=== PATIENT | female | born 1955 | race Caucasian/White ===

== ENCOUNTER → 2016-11-20 | Outpatient (CLI) | payer OTHER ==
[~2016-11-20] MED LIST: CETI10TA10 PO; HERBAL SUPPLEMENT PO; MULT-506 PO; OMEG10007 PO; VNTHFA/IN INH
[2016-11-20 17:17] LABS: HEMATOCRIT 42.7 % (37-47); MEAN CORPUSCULAR HEMOGLOBIN 29.9 pg (25-34); MEAN CORPUSCULAR HGB CONC 32.8 g/dl (32-36); MEAN PLATELET VOLUME 9.9 fL (7.4-10.4); PLATELET COUNT 210 K/uL (130-400); RED BLOOD COUNT 4.69 M/uL (4.2-5.4); WHITE BLOOD COUNT 4.82 K/uL (4.8-10.8)
[2016-11-20 17:29] LABS: PROTHROMBIN TIME (PATIENT) 11.2 SECONDS (9.0-12.0)
[2016-11-20 17:34] LABS: POTASSIUM 3.6 mmol/L (3.5-5.1)
== END | disposition home or self-care (01) ==
LOC: C.LAB 16:44
PROVIDERS: ATTEND Plastic Surgery
DX: Z01.818 Encounter for other preprocedural examination (principal)

== ENCOUNTER → 2016-11-28 | Day surgery (SDC) | payer SELFPAY ==
[2016-11-22 11:39] VITALS: Ht 166.4 cm; Wt 73.2 kg
[~2016-11-28] VITALS: Ht 166.4 cm; Wt 73.2 kg
[~2016-11-28] MED LIST changes: +ACETAMINOPHEN 1000 MG/100 ML IV IV ONE; +ACETAMINOPHEN 325 MG TAB PO PRN; +BACITRACIN OINT 15 GM TUBE ONE; +BUPIVACAINE 0.25% 2.5MG/ML PF 10 ML VIAL INFIL ONE; +CEFAZOLIN 1000MG/55 ML D5W IV SCH; +CEFAZOLIN SOD 1 GM VIAL ONE; +DEXAMETHASONE SOD INJ 4 MG/ML VIAL ONE; +DiphenhydrAMINE HCL 50 MG/ML VIAL IV PRN; +DiphenhydrAMINE HCL 50 MG/ML VIAL ONE; +FENTANYL CITRATE INJ 50 MCG/1 ML 2 ML VIAL ONE; +KETAMINE HCL INJ 50 MG/ML 10 ML VIAL ONE; +LACTATED RINGER'S 1000ML 1,000 ML IV PRN; +LACTATED RINGER'S 1000ML 1,000 ML IV SCH; +LIDOCAINE HCL 2% 2 ML VIAL (20MG/ML) ONE; +LIDOCAINE/EPINEPHRINE 1% INJ 50 ML VIAL ONE; +METOCLOPRAMIDE HCL INJ 5 MG/ML 2 ML VIAL IV PRN; +METOCLOPRAMIDE HCL INJ 5 MG/ML 2 ML VIAL ONE; +MIDAZOLAM HCL 1 MG/ML 2ML VIAL ONE; +ONDANSETRON INJ 2 MG/ML 2 ML VIAL IV PRN; +ONDANSETRON INJ 2 MG/ML 2 ML VIAL ONE; +OXYCODONE/ACETAMINOPHEN 5-325 TAB PO PRN; +PROPOFOL IV EMULSION 10 MG/ML 20 ML VIAL IV ONE; +ROPIVACAINE 0.5% 5 MG/ML 30 ML VIAL ONE; +SCOPOLAMINE 1.5 MG TDSY TD ONE; +SODIUM CHLORIDE 0.9% 1000ML 1,000 ML IV SCH; +SODIUM CHLORIDE 0.9% INJ 10 ML VIAL ONE
--- NOTE | 2016-11-28 07:07 | History & Physical Bridge - [place] ---
H&P Re-Evaluation Bridge Note: I have examined the patient, reviewed the History & Physical and in the interval since the performance of the History & Physical I have noted the following changes of clinical significance: No changes noted
--- NOTE | 2016-11-28 10:10 | [facility] Post Operative Brief Note ---
Immediate Operative Summary Operative Date November 28, 2016. Pre-Operative Diagnosis Retained breast implant; Bilateral breast implant rupture (MRI), desire for implant removal Post-Operative Diagnosis Retained Breast implant; Desire for implant removal Procedure(s) Performed Bilateral Breast Implant Removal With Capsulectomy Surgeon Dr Espinosa Resource Manager Forester Surgeon(s) Teetee Ford PA-C Estimated Blood Loss 50 ML Findings bilateral 650 cc textured subglandular silicone implants, both implants intact. Capsules pliable, no seromas Specimens A. Left Breast implant B. Right breast implant C. Left breast capsule and scar tissue-- test for ALCL D. right breast capsule and scar tissue--test for ALCL Drains GEORGE x2 Anesthesia general Complication(s) None Disposition Recovery Room / PACU
--- NOTE | 2016-11-28 10:18 | Discharge Instructions ---
Discharge Instructions Date of Service November 28, 2016. Admission Reason for Admission: Bilateral Breast Implants Discharge Discharge Diagnosis / Problem: bilateral breast implants Discharge Goals Goal(s): Decrease discomfort Activity Recommendations Activity Limitations: per Instructions/Follow-up section ACTIVITY RECOMMENDATIONS: __Normal activities _x_No bending, lifting or straining __No driving _x_Driving allowed when you are off pain medications _x_Walking permitted __You should have help at home for ___ days DRESSINGS: __No dressings required _x_Keep dressings dry/in place until first office visit. Continue to wear compression bra. If it feels too loose, please purchase a smaller/tighter bra __Remove dressings ___ and leave dressings off __Apply ice ___ days __Remove dressings and reapply garment __Apply antibiotic ointment (Bacitracin, Neosporin, etc) to wounds 3-4 times/ day for 10 days BATHING: _x_Keep dressings dry _x_Sponge bathing permitted __Showering permitted _x_No swimming, hot tubs or soaking in a tub MEDICATIONS: Resume previous medications unless instructed otherwise by your surgeon. _x_Do not use aspirin, Motrin, Advil or Ibuprofen as these may promote bleeding. Please use Tylenol. _x_Prescription(s) provided: pain medication was provided at your last office visit OTHER INSTRUCTIONS: _x_Record drain output 2-3 times per day SPECIAL CARE INSTRUCTIONS: * It is normal to have a mild fever after surgery. If your temperature is higher than 101.5 degrees F, please call the office at [phone]. * Constipation is a typical side effect of pain medication. An over-the- counter stool softener will help relieve this. * Leaking around surgical drains may occur and should not cause concern. Sometimes these drains become clogged. If this happens, remove the bulb and milk the clot out of the tube, then replace the bulb. * Drainage from wounds after liposuction is normal and should be expected. Garments will become soiled. You should protect furniture and bedding. This drainage should mostly subside within 2-3 days. Leave garments in place unless instructed to remove them. * If you have unusual drainage from a wound or are concerned you have an infection or have any questions or concerns, please call the office at [phone]. FOLLOW UP VISIT: If not already scheduled, please call the office, , when you return home after surgery to schedule an appointment to be seen in __2_ days. . Current Hospital Diet Patient's current hospital diet: Discharge Diet Recommended Diet: Regular Diet Procedures Procedures Performed: Bilateral Breast Implant Removal With Capsulectomy Pending Studies Studies pending at discharge: yes List of pending studies: pathology Medical Emergencies . Who to Call and When: Medical Emergencies: If at any time you feel your situation is an emergency, please call 911 immediately. . Non-Emergent Contact Non-Emergency issues call your: Primary Care Provider, Surgeon . "Provider Documentation" section prepared by Candelaria Ford. . VTE Core Measure Inpt VTE Proph given/why not?: SCD's [place] Drug Monitoring Program Search Results: no issues identified
[2016-11-28] MEDS: FENTANYL CITRATE INJ 50 MCG/1 ML 2 ML VIAL IV PRN ×3 (10:42→11:12)
[2016-11-28] MEDS: HYDROmorphone INJ 1 MG/ML SYR IV PRN ×2 (10:50→11:00)
[2016-11-28] MEDS: MIDAZOLAM HCL 1 MG/ML 2ML VIAL IV PRN ×2 (10:56→11:09)
--- NOTE | 2016-11-28 11:35 | Anesthesia Progress Nt - [facility] ---
Anesthesia Post Op Note Date & Time November 28, 2016 at 11:33 Vital Signs Pain Intensity: 0.0 Vital Signs Past 12 Hours Date Time Temp Pulse Resp B/P Pulse Ox O2 Delivery O2 Flow Rate FiO2 11/28/16 10:19 36.1 71 12 137/78 99 Mask 6 11/28/16 06:30 37.3 74 20 111/80 100 Room Air Notes Mental Status: alert / awake / arousable, participated in evaluation Pt Amnestic to Procedure: Yes Nausea / Vomiting: adequately controlled Pain: adequately controlled Airway Patency, RR, SpO2: stable & adequate BP & HR: stable & adequate Hydration State: stable & adequate Anesthetic Complications: no major complications apparent Pt's pain now resolved after treatment. She initially requested a block for post -op analgesia but was concerned about the cost. See pre-anesthesia eval for more details. I consented for possible post-op paravertebral blocks but this was not needed.
--- NOTE | 2016-11-28 12:12 | OPERATIVE REPORT ---
DATE OF OPERATION: 11/28/2016 PREOPERATIVE DIAGNOSIS: Ruptured silicone breast implant with left breast pain. POSTOPERATIVE DIAGNOSIS: Retained breast implants, intact implants. PROCEDURE: Bilateral breast implant removal with total capsulectomy. SURGEON: Dr. Ava Espinosa. COLD MILL SUPERVISOR: Candelaria Ford PA-C. ANESTHESIA: General. COMPLICATIONS: None. INDICATION FOR THE PROCEDURE: The patient is a 61-year-old female who presented to my office with left breast pain and concern for breast implant rupture. An MRI was ordered which showed bilateral implant rupture. The patient desired removal of the implants without replacement or mastopexy. OPERATION AND FINDINGS: BRIEF DESCRIPTION OF THE PROCEDURE: Risks, benefits, and alternatives of the procedure were reviewed with the patient who agreed and signed consent. We specifically discussed that removal of her implants may not improve the symptoms that she is experiencing and that she may be dissatisfied with the cosmetic outcome and may ultimately require staged mastopexy. The patient requested complete capsulectomy based on her research and also inquired about possible testing for anaplastic large cell lymphoma associated with breast implants. The patient was brought to the operating room where she was positioned supine and placed under general anesthesia without incident. Surgical site was prepped and draped sterilely. A time-out procedure was performed. I began with the left side. The incision was marked along her inframammary fold and her previous incision was marked for excision. 1% lidocaine with epinephrine was used to anesthetize the planned incision as well as the breast parenchyma. A 15 blade scalpel was used to perform an elliptical incision of the prior scar. Incision was deepened using electrocautery until the breast implant capsule was identified. I began the initial portion of the capsulectomy with the implant in place dissecting in the plane between breast parenchyma and implant capsule inferiorly as well as superiorly and posteriorly behind the implant. It was noted that the implant was placed actually in the subglandular plane, despite MRI report noting that the implants were retropectoral. Dissection was carried as far posteriorly as could be easily visualized with the implant in place. Additionally, the anterior capsule was dissected in similar fashion until I was unable to further retract breast parenchyma. At this point, I incised the capsule, removed the implant which was noted to be a 650 mL silicone textured implant which was completely intact. There was no seroma fluid noted within the capsule. The remainder of the capsule was excised using Allis clamp and lighted retractor to provide retraction. I was able to perform a complete capsulectomy on the left. Hemostasis was achieved with electrocautery. As there was no implant rupture, I elected to irrigate only with saline, not with Betadine soap. After achieving hemostasis, the wound was packed with a lap sponge and saline as well as 10 mL of 0.25% Marcaine plain. Attention was turned to the right side where a similar procedure was undertaken. Again, the implant capsule was opened. When I was unable to further visualize the plane for dissection and was removed and noted to be intact as well, also 650 mL silicone textured implant in the subglandular plane. Entire capsule was removed on the right side as well. Hemostasis was achieved with electrocautery. It should be noted the capsule was uniform, thin and pliable, without evidence of contracture or calcification. Following complete capsulectomy on the right after achieving hemostasis, the pocket was irrigated with saline and packed with a lap sponge with 0.25% Marcaine plain and sterile saline. A 15 Tristanian Roberto drains were placed into both pockets and brought out through separate stab incisions. Wound was reapproximated using 3-0 Vicryl deep dermal suture, 3-0 Vicryl superficial dermal suture, 3-0 Monocryl running subcuticular suture. Dermabond was applied. The drains were sewn into place using 3-0 silk suture and were dressed with Xeroform and dry dressing. Surgical bra was placed. The procedure was tolerated well. The patient was awakened and transferred to recovery room in satisfactory condition. I attest to the content of the Intraoperative Record and any orders documented therein. Any exceptio ns are noted below.
[2016-11-28 12:36] VITALS: TEMP 36.7
[2016-11-28] MEDS: OXYCODONE/ACETAMINOPHEN 5-325 TAB PO PRN ×2 (12:46→13:17)
[2016-11-28 13:45] VITALS: BP 127/78; PULSE 82; O2SAT 100
== END | disposition home or self-care (01) ==
LOC: X.SURG 06:23
PROVIDERS: ATTEND Plastic Surgery
DX: Z45.811 Encounter for adjustment or removal of right breast implant (principal); Z45.812 Encounter for adjustment or removal of left breast implant; N64.4 Mastodynia; M19.90 Unspecified osteoarthritis, unspecified site; Z98.82 Breast implant status; J45.909 Unspecified asthma, uncomplicated; Z98.890 Other specified postprocedural states; Z68.26 Body mass index [BMI] 26.0-26.9, adult; Z90.710 Acquired absence of both cervix and uterus; Z90.89 Acquired absence of other organs; Z88.1 Allergy status to other antibiotic agents; Z91.040 Latex allergy status; Z86.718 Personal history of other venous thrombosis and embolism; Z82.49 Family history of ischemic heart disease and other diseases of the circulatory system; Z80.1 Family history of malignant neoplasm of trachea, bronchus and lung; Z80.7 Family history of other malignant neoplasms of lymphoid, hematopoietic and related tissues; Z82.0 Family history of epilepsy and other diseases of the nervous system